=== PATIENT | female | born 1950 | race Caucasian/White ===

== ENCOUNTER 2019-06-20 13:50 | Emergency (ER) | payer MEDICARE, OTHER, SELFPAY ==
[2019-06-20 13:53] VITALS: BP 143/73; PULSE 108; RESP 18; TEMP 36.7; O2SAT 96; BMI 31.0
[2019-06-20 14:59] LABS: Basophils Absolute Auto 0 /uL (0-100); Eosinophils Absolute Auto 0 /uL (0-450); Monocytes Absolute Auto 500 /uL (0-900); Neutrophils Absolute Auto 5300 /uL (1500-7000)
[2019-06-20 15:00] VITALS: BP 145/66; PULSE 80; RESP 19; O2SAT 95
[2019-06-20 15:02] LABS: Add Manual Diff / Slide Review NO; Basophils Percent Auto 0.6 % (0-2); Eosinophils Percent Auto 0.4 % (2-4); Hematocrit 41.9 % (36-46); Hemoglobin 14.4 g/dL (12.0-16.0); Lymphocytes Absolute Auto 2200 /uL (1100-4500); Lymphocytes Percent Auto 27.2 % (25-40); Mean Corpuscular HGB Conc 34.3 % (30-36); Mean Corpuscular Hemoglobin 29.5 PG (26-34); Mean Corpuscular Volume 86.1 fL (80-100); Monocytes Percent Auto 5.7 % (3-14); Neutrophils Percent Auto 66.1 % (50-75); Platelet Count 240 X10^3/uL (150-400); Red Blood Cell Count 4.86 X10^6/uL (4.0-5.2); Red Cell Distribution Width 14.1 % (11.6-14.8)
[2019-06-20 15:09] LABS: Erythrocyte Sedimentation Rate 18 MM/HR (0-20)
[2019-06-20 15:10] LABS: Alanine Aminotransferase 20 IU/L (<35); Albumin 4.4 g/dL (3.5-5.0); Albumin Globulin Ratio 1.4 (1.0-2.8); Alkaline Phosphatase 95 U/L (38-126); Aspartate Aminotransferase 21 IU/L (14-36); BUN Creatinine Ratio 23.5 (6-22); Bilirubin Total 0.6 mg/dL (0.2-1.3); Blood Urea Nitrogen 19 mg/dL (7-17); C-Reactive Protein Quant 0.9 mg/dL (<1.0); Calcium 9.6 mg/dL (8.4-10.2); Carbon Dioxide 22 mmol/L (22-32); Chloride 105 mmol/L (98-107); Cholesterol 303 mg/dL (140-199); Estimated Glomerular Filt Rate > 60.0 mL/min (>60); Globulin 3.2 g/dL (1.7-4.1); Glucose 133 mg/dL (80-110); HDL Cholesterol 39 mg/dL (40-60); HEMOLYSIS < 15 (0-50); LDL Cholesterol Calculated 202 mg/dL (<100); Potassium 4.1 mmol/L (3.4-5.1); Sodium 137 mmol/L (137-145); Total Protein 7.6 g/dL (6.3-8.2); Triglycerides 312 mg/dL (35-150)
[2019-06-20 16:08] VITALS: BP 134/62; PULSE 67; RESP 18; O2SAT 98
--- NOTE | 2019-06-20 23:59 | ED.EYEPROB ---
HPI - Eye Problem <Dionte Elder [facility] - Last Filed: 06/21/19 00:21> General Chief complaint: Eye Problems Stated complaint: double vision Time Seen by Provider: 06/20/19 13:56 Source: patient Mode of arrival: Ambulatory Limitations: no limitations History of Present Illness HPI Narrative: This is a 69-year-old female, smoker, who presents to ED with chief complain of double vision for last 6 days and was referred to ED by Dr. Gamez ([employer]) for medical evaluation. Patient reports she was evaluated by Dr. Gamez today for double vision when she opens both eyes but with normal vision when she opens single eye at a time. Patient has been using sterile gauze over right eye to correct her vision at home. Patient denies other neurological symptoms such as headache, speech difficulty, facial droops, dysphagia, weakness to extremities. Patient has difficulty with balance but this is due to double vision but no difficulty with coordination. Patient denies recent illness, injury to eyes. Patient reports she has a follow-up appointment with Dr. Gamez and he contributes her double vision to ocular misalignment from dysfunctional eye muscle. Since patient has not seen by primary care physician for 5 years, Dr. Gamez requested patient to be evaluated for medical exam. Patient states she visit is previous primary care physician's office but she was told she will need reestablishment with the clinic and is not going to be seen for prolonged time. Related Data Allergies Allergy/AdvReac Type Severity Reaction Status Date / Time No Known Drug Allergies Allergy Verified 06/20/19 14:08 Review of Systems <Dionte PaulsonNicholas [facility] - Last Filed: 06/21/19 00:21> Review of Systems Narrative: General: Denies fever, chills, fatigue, malaise, sweats. HEENT: HPI Respiratory: Denies dyspnea, cough, wheezing, hemoptysis, sputum. Cardiovascular: Denies chest pain, palpitations, orthopnea, edema. Gastrointestinal: Denies nausea, vomiting, abdominal pain, diarrhea, constipation, melena. : Denies dysuria, frequency, incontinence, hematuria, urinary retention. Musculoskeletal: Denies weakness, joint pain or bony pain. Skin: Denies rash, skin lesions, or other. Neurologic: Denies weakness, headache, numbness, change in speech, confusion, seizures, incoordination. Psychiatric: No concerning psychosocial issues. 12-point review of systems is negative except for those stated above. Patient History <MIK Dalal - Last Filed: 06/21/19 00:21> Surgical History History of abdominoplasty (Acute) History of bilateral tubal ligation (Acute) Hx of tonsillectomy (Acute) Social History Smoking Status: Current every day smoker Smoking Status: Current every day smoker tobacco type: cigarettes Substance Use Type: does not use Exam <MIK Dalal - Last Filed: 06/21/19 00:21> Narrative Exam Narrative: GEN: Alert, oriented x 3, well appearing and nourished, and in no acute distress. Head: Normal cephalic, atraumatic. No scalp or temporal tenderness, cord-like temporal artery, palpable mass or rash. EYES: Pupils are equal, round, dilated. Extraocular muscles are intact bilaterally but not aligned with lateral movements. There is no subconjunctival hemorrhage, exudate and sclera non-icteric. ENT: Bilateral auditory canals and tympanic membranes clear. Hearing grossly intact. Nose without bleeding, purulent discharge or deviation. Facial sinuses nontender to palpate. Mucous membrane moist, no mucosal lesion. Throat without erythema, tonsillar hypertrophy or exudate. Uvula in midline, airway patent. Neck: Trachea in midline. No JVD, non-tender without lymphadenopathy. No masses or thyroid megaly. Supple, non-tender and no meningeal signs. CARDIAC: Normal tachy rate at 100's and regular rhythm without murmurs, gallops, or rubs. No chest wall tenderness. No peripheral edema, cyanosis or pallor. Capillary refill is less than 2 seconds. RESPIRATORY: Lungs are clear to auscultate bilaterally. No cough, wheezes, rales, or rhonchi. No stridor, respiratory distress, increase work of breathing, or accessary muscle used. ABD: Abdomen soft, nontender and non-distended. No guarding or rebound tenderness to palpate. Bowel sounds are normal in all 4 quadrants. There is no palpable masses or organomegaly. EXT: Full painless ROM of all extremities with no loss of sensation, strength, effusion or edema. SKIN: Warm, dry, normal color for patient. No erythema, lesions or rash over visible areas. BACK: Nontender without deformity or crepitance. No flank tenderness. NEUROLOGICAL: Alert and oriented to place, time and person. Sensation and motor function intact bilaterally. No facial droops, dysphasia. PSYCHIATRIC: Good judgement and reason, without hallucinations, abnormal affect or abnormal behaviors during the examination. Patient is not suicidal. Initial Vital Signs Initial Vital Signs: Vital Signs Temperature 98.0 F 06/20/19 13:53 Pulse Rate 108 H 06/20/19 13:53 Respiratory Rate 18 06/20/19 13:53 Blood Pressure 143/73 H 06/20/19 13:53 Pulse Oximetry 96 06/20/19 13:53 <Cal Sherwood DO - Last Filed: 06/21/19 07:01> Initial Vital Signs Initial Vital Signs: Vital Signs Temperature 98.0 F 06/20/19 13:53 Pulse Rate 108 H 06/20/19 13:53 Respiratory Rate 18 06/20/19 13:53 Blood Pressure 143/73 H 06/20/19 13:53 Pulse Oximetry 96 06/20/19 13:53 Scores <MIK Dalal - Last Filed: 06/21/19 00:21> GCS [place] coma scale eye opening: Spontaneous [place] coma scale verbal response: Orientated Hector coma scale motor response: Obey commands Hector coma scale total score: 15 NIH Stroke Scale Level of Conciousness: Alert, keenly responsive Ask month/age: Answers both questions correctly. Open/close eyes, close hand: Performs both tasks correctly Best gaze horizontal: Normal Visual garrett: No visual loss Facial palsy: Normal symetrical movement Left arm drift: No drift for full 10 sec Right arm drift: No drift for full 10 sec Left leg drift: No drift for full 10 sec Right leg drift: No drift for full 10 sec Limb ataxia: Absent Sensory on face/arms/legs: Normal, no sensory loss Best language: No aphasia, normal Dysarthria: Normal Extinction or inattention: No abnormality Total NIH Stroke scale score: 0 Course <MIK Dalal - Last Filed: 06/21/19 00:21> Vital Signs Vital signs: Vital Signs - 8 hr 06/20/19 16:08 Pulse Rate 67 Respiratory Rate 18 Blood Pressure [Left Arm] 134/62 Pulse Oximetry 98 <Cal Sherwood DO - Last Filed: 06/21/19 07:01> Vital Signs Vital signs: Vital Signs - 8 hr 06/20/19 16:08 Pulse Rate 67 Respiratory Rate 18 Blood Pressure [Left Arm] 134/62 Pulse Oximetry 98 MDM - Eye Problem <Dionte Paulson-CruzMIK morrow - Last Filed: 06/21/19 00:21> Differential Diagnosis Differential diagnosis: Likely other (CVA, binocular diplopia) Medical Records Attestation: I reviewed the patient's medical records. Lab Data Attestation: I reviewed the patient's lab results. Result diagrams: 06/20/19 14:45 06/20/19 14:45 Labs: Lab Results 06/20/19 06/20/19 Range/Units 14:45 14:45 WBC 8.0 (4.5-11.0) X10^3/uL RBC 4.86 (4.0-5.2) X10^6/uL Hgb 14.4 (12.0-16.0) g/dL Hct 41.9 (36-46) % MCV 86.1 (80-100) fL MCH 29.5 (26-34) PG MCHC 34.3 (30-36) % RDW 14.1 (11.6-14.8) % Plt Count 240 (150-400) X10^3/uL Neut % (Auto) 66.1 (50-75) % Lymph % (Auto) 27.2 (25-40) % Wake % (Auto) 5.7 (3-14) % Eos % (Auto) 0.4 L (2-4) % Baso % (Auto) 0.6 (0-2) % Neut # (Auto) 5300 (0453-9031) /uL Lymph # (Auto) 2200 (7102-7681) /uL Wake # (Auto) 500 (0-900) /uL Eos # (Auto) 0 (0-450) /uL Baso # (Auto) 0 (0-100) /uL ESR 18 (0-20) MM/HR Sodium 137 (137-145) mmol/L Potassium 4.1 (3.4-5.1) mmol/L Chloride 105 (98-107) mmol/L Carbon Dioxide 22 (22-32) mmol/L BUN 19 H (7-17) mg/dL Creatinine 0.81 (0.52-1.04) mg/dL Estimated GFR > 60.0 (>60) mL/min BUN/Creatinine Ratio 23.5 H (6-22) Glucose 133 H (80-110) mg/dL Calcium 9.6 (8.4-10.2) mg/dL Total Bilirubin 0.6 (0.2-1.3) mg/dL AST 21 (14-36) IU/L ALT 20 (<35) IU/L Alkaline Phosphatase 95 (38-126) U/L C-Reactive Protein 0.9 (<1.0) mg/dL Total Protein 7.6 (6.3-8.2) g/dL Albumin 4.4 (3.5-5.0) g/dL Globulin 3.2 (1.7-4.1) g/dL Albumin/Globulin Ratio 1.4 (1.0-2.8) Triglycerides 312 H (35-150) mg/dL Cholesterol 303 H (140-199) mg/dL LDL Cholesterol, Calc 202 H (<100) mg/dL HDL Cholesterol 39 L (40-60) mg/dL ECG Data Attestation: I personally reviewed and interpreted this ECG as follows: Prior ECG tracings: not available for review Interpretation: Normal sinus rhythm rate at 71. Normal axis. P are interval 166, QRS duration 80, QT/QTC 366/397. No ST elevation or depression. MDM Narrative Medical decision making narrative: This is a 69-year-old female who presents to ED for medical exam since she does not have primary care physician and lab test after she was seen by for binocular diplopia for last 6 days. Patient has not been seen by primary care physician for last 5 years and he was suggested that patient should have medical exam done to ensure that binocular diplopia is not due to other medical conditions. Patient has no other focal neurological symptoms. Patient reports she see double vision when she opens both eyes but it gets clear when she opens one eye at a time. EKG test was normal sinus rhythm rate at 71. Patient had stable H&H without leukocytosis. Chemistry test was unremarkable except mild signs of dehydration. Patient had elevated serum glucose level as 133. Liver function tests were unremarkable. Kidney function test was normal. Patient requested lipid panel even after we discussed this is not routinely done in emergency room and should be arranged by new primary care physician but patient requested this to be done today. Patient had moderately increased triglycerides of 312, cholesterol of 303, LDL of 202, decreased HDL as 39. Patient states she used to take low dose of statin and is hoping to lose at least 20-30 lb which will help with hyperlipidemia and elevated glucose. Also Dr. Gamez requested CRP an ESR test to be done which were both normal to be considered for giant temporal arteritis or inflammation/infection etiology. 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 Discussed findings with patient patient provided with [facility] contact phone numbers and local clinic to set up a a PCP. Patient advised increased physical activity heart healthy diet to work on her weight and hyperlipidemia/hyperglycemia. Also, patient informed to consider statin therapy which should be followed up by PCP. Patient informed she may need further blood test including but not limited to thyroid function test, hemoglobin A1c which could cause diplopia as well. Patient verbalized understanding and agreement with the treatment plan. <Cal Sherwood, DO - Last Filed: 06/21/19 07:01> Lab Data Labs: Lab Results 06/20/19 06/20/19 Range/Units 14:45 14:45 WBC 8.0 (4.5-11.0) X10^3/uL RBC 4.86 (4.0-5.2) X10^6/uL Hgb 14.4 (12.0-16.0) g/dL Hct 41.9 (36-46) % MCV 86.1 (80-100) fL MCH 29.5 (26-34) PG MCHC 34.3 (30-36) % RDW 14.1 (11.6-14.8) % Plt Count 240 (150-400) X10^3/uL Neut % (Auto) 66.1 (50-75) % Lymph % (Auto) 27.2 (25-40) % Wake % (Auto) 5.7 (3-14) % Eos % (Auto) 0.4 L (2-4) % Baso % (Auto) 0.6 (0-2) % Neut # (Auto) 5300 (1494-9332) /uL Lymph # (Auto) 2200 (0111-3353) /uL Wake # (Auto) 500 (0-900) /uL Eos # (Auto) 0 (0-450) /uL Baso # (Auto) 0 (0-100) /uL ESR 18 (0-20) MM/HR Sodium 137 (137-145) mmol/L Potassium 4.1 (3.4-5.1) mmol/L Chloride 105 (98-107) mmol/L Carbon Dioxide 22 (22-32) mmol/L BUN 19 H (7-17) mg/dL Creatinine 0.81 (0.52-1.04) mg/dL Estimated GFR > 60.0 (>60) mL/min BUN/Creatinine Ratio 23.5 H (6-22) Glucose 133 H (80-110) mg/dL Calcium 9.6 (8.4-10.2) mg/dL Total Bilirubin 0.6 (0.2-1.3) mg/dL AST 21 (14-36) IU/L ALT 20 (<35) IU/L Alkaline Phosphatase 95 (38-126) U/L C-Reactive Protein 0.9 (<1.0) mg/dL Total Protein 7.6 (6.3-8.2) g/dL Albumin 4.4 (3.5-5.0) g/dL Globulin 3.2 (1.7-4.1) g/dL Albumin/Globulin Ratio 1.4 (1.0-2.8) Triglycerides 312 H (35-150) mg/dL Cholesterol 303 H (140-199) mg/dL LDL Cholesterol, Calc 202 H (<100) mg/dL HDL Cholesterol 39 L (40-60) mg/dL Discharge Plan Departure Patient Disposition: Home Clinical Impression: Binocular vision disorder with diplopia, Blood glucose elevated Hyperlipidemia Qualifiers: Hyperlipidemia type: unspecified Qualified Code(s): E78.5 - Hyperlipidemia, unspecified Discharge Date/Time: 06/20/19 16:15 Instructions: Lifestyle Changes as Effective as Drugs in Preventing Progression to Diabet, DI for High Cholesterol-Adult, DI for Double Vision Activity Restrictions/Additional Instructions: You have been diagnosed with [binocular diplopia. Please use sterile gauze to cover your eye as needed to help with double vision. Blood count looks good. EKG looks normal sinus rhythm. Lipid panel was moderately elevated and serum glucose was mildly elevated. ESR and CRP was within normal limits. You can share this information with Dr. Gamez. ]. What to do: *Take your medications as directed. You can change your diet and increased physical activity to help with elevated lipids and glucose. Losing 10 lb could decrease her blood pressure as well. *Follow up with your primary care provider in 2-3 days, call for an appointment. Let them know you were seen in the ED and that we asked you to be seen in follow up. Please follow-up with Dr. Gamez as scheduled. Please contact [facility] or Dr. Shankar's office to set up an PCP and to follow up with hyperlipidemia, elevated blood glucose, possible thyroid hormone testing. *Return to ED if you have any new, worsening, or concerning symptoms, such as [chest pain, breathing difficulty, fever, unable to tolerate fluids, difficulty speech, weakness to 1 side of body, severe headache, difficulty swallowing or any acute concerns]. Referrals: [facility] [Outside] Brennen Shankar MD [Physician] - <Cal Sherwood DO - Last Filed: 06/21/19 07:01> Cosign ED Attending Cosignature Attestation: Dr Sherwood Co-Sign Statement: I was available for consultation during this patient's emergency department visit. This chart is signed by myself for administrative purposes only. I did not have direct contact with this patient during this visit. They were seen independently by the APC.
== END 2019-06-20 16:15 | disposition home or self-care (01) ==
PROVIDERS: Emergency Provider Nurse Practitioner Family
DX: H53.2 Diplopia (principal); R73.9 Hyperglycemia, unspecified; E78.5 Hyperlipidemia, unspecified; R07.9 Chest pain, unspecified
CPT/HCPCS: 36415; 80053; 80061; 85025; 85651; 86140; 93005; 99284

== ENCOUNTER → 2019-06-21 12:27 | Outpatient (CLI) | payer MEDICARE, OTHER, SELFPAY ==
[2019-06-21 12:45] LABS: Hemoglobin A1C% w Est Avg Glu 6.8 % (4.0-6.0)
== END ==
PROVIDERS: Visit Provider Nurse Practitioner Family
DX: H53.2 Diplopia (principal)
CPT/HCPCS: 83036; 84443

== ENCOUNTER → 2019-11-24 08:43 | Outpatient (CLI) | payer MEDICARE, OTHER, SELFPAY ==
[2019-11-24 09:36] LABS: Hemoglobin A1C% w Est Avg Glu 6.4 % (4.0-6.0)
[2019-11-24 09:42] LABS: Cholesterol 136 mg/dL (140-199); HDL Cholesterol 53 mg/dL (40-60); LDL Cholesterol Calculated 59 mg/dL (<100); Triglycerides 119 mg/dL (35-150)
[2019-11-24 10:15] LABS: Creatinine Urine Random 20.8 mg/dL
[2019-11-24 10:19] LABS: Microalbumi Creatinin Ratio Ur 28.8 ug/mg CR (<30); Microalbumin Urine Random < 0.6 mg/dL (0-1.6)
== END ==
PROVIDERS: PCP Nurse Practitioner Family; Referring Provider Nurse Practitioner Family; Visit Provider Nurse Practitioner Family
DX: E11.9 Type 2 diabetes mellitus without complications (principal); E78.5 Hyperlipidemia, unspecified
CPT/HCPCS: 36415; 80061; 82043; 82570; 83036

== ENCOUNTER → 2020-02-27 10:03 | Outpatient (CLI) | payer MEDICARE, OTHER, SELFPAY ==
--- NOTE | 2020-02-27 11:24 | DIET.PN ---
Diabetes Intake: Initial Assessment Assess: Ms. Martinez is a 69 YOF referred for type 2 diabetes. Pt has a hx of IBS. Avoids sulfites, garlic, onion, MSG. Family hx of hyperlipidemia and diabetes. Admits to poor eating habits, particularly stress eating in the last few months. She does not cook. Regular consumption of frozen meals and was eating omar in the box or [employer] several times/week. Started metformin and statin in June after most recent labs. Has difficulty exercising/walking due to SI tear. Labs: Per pt report: 6.8 Meds: metformin 500mg qd atorvastatin: 20mg Diet: per 24 hr recall: B: wheat ukrainian muffin w/ cr chz; special K cereal w/ almond milk; OJ L: varies D: lean cuisine bowls, crockpot meals Sn: apples, mandarin oranges, rice cakes w/ peanut butter, activia, diabetic friendly ice cream Wt: 175lb Ht: 65in BMI: 29 DX: Altered nutrition related laboratory values related to impaired glucose metabolism, lack of previous exposure to nutrition information as evidenced by pt report, diagnosis of diabetes, previous diet high in refined carbohydrates. Intervention: 1. Completed intake assessment. Discussed barriers to care. 2. Discussed pathophysiology of diabetes. Reviewed A1c and its correlation to blood glucose numbers. Discussed recommended BG ranges. 3. Discussed importance of self-monitoring, how often, and when to check. 4. Reviewed hyper/hypoglycemia and treatment. 5. Reviewed safe disposal of equipment (strip/lancets/insulin needles). 6. Created SMART goals for pt self-care and success. 7. Discussed program curriculum outline and class needs based on individual goals. SMART Goals: 1. Pt would like to lose 25lbs in the next 6 mo (overall goal of 50lb) through portion control, carb counting, reading food labels, and walking daily. Monitor/Evaluate: Pt will attend full DSME program. Basic Nutrition class scheduled for Mar 08.
== END ==
PROVIDERS: PCP Nurse Practitioner Family; Referring Provider Nurse Practitioner Family; Visit Provider Nurse Practitioner Family
DX: E11.9 Type 2 diabetes mellitus without complications (principal); S33.6XXD Sprain of sacroiliac joint, subsequent encounter; Z79.84 Long term (current) use of oral hypoglycemic drugs; Z83.438 Family history of other disorder of lipoprotein metabolism and other lipidemia
CPT/HCPCS: G0108

== ENCOUNTER → 2020-03-03 08:26 | Outpatient (CLI) | payer MEDICARE, OTHER, SELFPAY ==
[2020-03-03 09:50] LABS: Hemoglobin A1C% w Est Avg Glu 6.7 % (4.0-6.0)
[2020-03-03 10:08] LABS: Blood Urea Nitrogen 15 mg/dL (7-17); Calcium 9.5 mg/dL (8.4-10.2); Carbon Dioxide 29 mmol/L (22-32); Chloride 100 mmol/L (98-107); Estimated Glomerular Filt Rate > 60.0 mL/min (>60); Glucose 120 mg/dL (80-110); HEMOLYSIS < 15 (0-50); Potassium 4.4 mmol/L (3.4-5.1); Sodium 134 mmol/L (137-145)
== END ==
PROVIDERS: PCP Nurse Practitioner Family; Referring Provider Nurse Practitioner Family; Visit Provider Nurse Practitioner Family
DX: E11.9 Type 2 diabetes mellitus without complications (principal)
CPT/HCPCS: 36415; 80048; 83036

== ENCOUNTER → 2020-03-06 13:50 | Outpatient (CLI) | payer MEDICARE, OTHER, SELFPAY ==
--- NOTE | 2020-03-06 15:48 | DIET.PN ---
Diabetes: Healthy Eating 1 Intervention: ? Discussed pathophysiology of diabetes and impact of nutrition/diet on blood sugar control.? Discussed fed versus non-fed state.?? ? Reviewed importance of Balance, Variety, and Moderation. ? Discussed the effect of carbohydrates/protein/fat on blood sugar control.? ? Stressed importance of consistent carbohydrate intake at each meal and provided instructions for recommended servings/portions of carbohydrates/protein per meal. Provided educational material. ? Reviewed carbohydrate counting and measuring carbohydrate content via serving sizes and reading nutrition labels.? Provided handouts.?? ? Discussed the difference between simple versus complex carbohydrates and the effect of fiber on blood sugar control.? Discussed various methods to increase fiber content in diet. ? Discussed the plate method for creating more carbohydrate conscious balanced meals. ? Stressed importance of meal timing and not going >4-5 hours between meals. Encouraged adding protein to evening snack to support glucose control overnight. ? Discussed importance of making dietary habits part of lifestyle change.
== END ==
PROVIDERS: PCP Nurse Practitioner Family; Referring Provider Nurse Practitioner Family; Visit Provider Nurse Practitioner Family
DX: E11.9 Type 2 diabetes mellitus without complications (principal); Z71.3 Dietary counseling and surveillance
CPT/HCPCS: G0109

== ENCOUNTER → 2020-03-11 13:53 | Outpatient (CLI) | payer MEDICARE, OTHER, SELFPAY ==
--- NOTE | 2020-03-11 15:43 | DIET.PN ---
Diabetes: Healthy Eating 2 Intervention: Fats effects on glucose, weight, heart disease, cholesterol Sat Vs Unsat Protein- animal and plant based options Low, med, high fat meats Sugar substitutes Sodium Health claims Grocery shopping guidelines Eating away from home Alcohol Sick day guidelines Ketone Testing
== END ==
PROVIDERS: PCP Nurse Practitioner Family; Referring Provider Nurse Practitioner Family; Visit Provider Nurse Practitioner Family
DX: E11.9 Type 2 diabetes mellitus without complications (principal); Z71.3 Dietary counseling and surveillance
CPT/HCPCS: G0109

== ENCOUNTER → 2020-04-22 10:02 | Outpatient (CLI) | payer MEDICARE, OTHER, SELFPAY ==
--- NOTE | 2020-04-22 11:42 | DIET.PN ---
Diabetes Physiology: Intervention 1. Diabetes physiology 2. Detecting and treatment of acute and chronic complications 3. Diagnosis of and difference in types of diabetes 4. Self-monitoring and pattern management a. Demonstrate glucometer and control testing b. Explain BG results and action to take when out of range. 5. Foot , eye, dental care 6. Medications a. Oral medication classification b. Injectable c. Insulin i. Injection protocol ii Other delivery methods
== END ==
PROVIDERS: PCP Nurse Practitioner Family; Referring Provider Nurse Practitioner Family; Visit Provider Nurse Practitioner Family
DX: E11.9 Type 2 diabetes mellitus without complications (principal); Z71.3 Dietary counseling and surveillance
CPT/HCPCS: G0109

== ENCOUNTER → 2020-04-29 09:59 | Outpatient (CLI) | payer MEDICARE, OTHER, SELFPAY ==
--- NOTE | 2020-04-29 11:13 | DIET.PN ---
Diabetes Exercise/Lifestyle change: 1. Importance of exercise 2. FITT (frequency, intensity, time, type) 3. Strength training tips and guidelines 4. Glucose monitoring/ranges before and after a. Carbohydrate needs based on glucose ranges and duration/intensity of exercise b. Rule of 15 5. Proper foot attire 6. Developing strategies for behavior change 7. SMART Goal Setting 8. Home exercise routine demonstration (as a class)
== END ==
PROVIDERS: PCP Nurse Practitioner Family; Referring Provider Nurse Practitioner Family; Visit Provider Nurse Practitioner Family
DX: E11.9 Type 2 diabetes mellitus without complications (principal); Z71.3 Dietary counseling and surveillance
CPT/HCPCS: G0109

== ENCOUNTER → 2020-05-22 13:24 | Outpatient (CLI) | payer MEDICARE, OTHER, SELFPAY ==
--- NOTE | 2020-05-22 14:34 | DIET.PN ---
DIABETES Nutrition Initial Assessment:? ASSESS:?? Ms. Martinez is a 70 yof??referred for type 2 diabetes seen as part of DSME program. She has not been monitoring her bg as she has not received all of her glucometer supplies. She recently purchased a pedometer to begin tracking her steps/activity. She admits she has not been as compliant with her diabetes management in the last few weeks. She is feeling more motivated now to exercise and start eating better. She has found exercise difficult due to DI tear but agrees to start walking up and down her driveway until she feel comfortable leaving her home. ??? LABS: Per pt report:? A1c- 6.7 (not checking bs) ? MEDS:?? metformin: 500mg qd atorvastatin: 20mg ? DIET: Per 24-hour recall:? Eating Out: rarely Changes in Appetite: na Nutrition Supplements: ? Weight: 175lb Height: 65in BMI: ? 29 ? Exercise:? not exercising NUTRITION DX 1. Altered Nutrition related labs related to impaired glucose metabolism, lack of previous exposure to accurate nutrition information as evidenced by pt report, dx of diabetes, previous diet high in refined carbohydrates.? INTERVENTION(s): 1. Reviewed pathophysiology of diabetes and impact of nutrition/diet on blood sugar control.? Discussed fed versus non-fed state.?? 2. Discussed the effect of carbohydrates/protein/fat on blood sugar control.? Stressed importance of consistent carbohydrate intake at each meal and provided instructions for recommended servings/portions of carbohydrates/protein per meal. Provided pt with educational material. 3. Reviewed carbohydrate counting and measuring carbohydrate content via serving sizes and reading nutrition labels.? Provided handouts.?? 4. Discussed the difference between simple versus complex carbohydrates and the effect of fiber on blood sugar control.? Discussed various methods to increase fiber content in diet. 5. Stressed importance of meal timing and not going >4-5 hours between meals. Encouraged adding protein to evening snack to support glucose control overnight. Patient agreeable. 6. Discussed healthy weight loss goals of 1-2lbs per week through diet and exercise.? Pt agreeable to walking at least 30 minutes daily working up to 10,000 steps/day. 7. Recommend monitoring fasting and alternating 2 hr PP mealtime glucose. Spent 15 min demonstrating glucometer, control testing, and safe disposal. MONITOR/EVALUATE: Anticipate good compliance.? Nutrition follow-up scheduled for 1 month.
== END ==
PROVIDERS: PCP Nurse Practitioner Family; Referring Provider Nurse Practitioner Family; Visit Provider Nurse Practitioner Family
DX: E11.9 Type 2 diabetes mellitus without complications (principal); Z79.84 Long term (current) use of oral hypoglycemic drugs; Z71.3 Dietary counseling and surveillance; Z68.29 Body mass index [BMI] 29.0-29.9, adult
CPT/HCPCS: G0109

== ENCOUNTER → 2020-06-05 08:27 | Outpatient (CLI) | payer MEDICARE, OTHER, SELFPAY ==
[2020-06-05] MEDS: COVID-19 VACC, Ad26(JANSSEN)/PF 0.5 ML IM (08:34)
== END ==
PROVIDERS: PCP Nurse Practitioner Family; Visit Provider Internal Medicine
DX: Z23 Encounter for immunization (principal)
CPT/HCPCS: 0031A; 91303

== ENCOUNTER → 2022-06-07 09:05 | Outpatient (CLI) | payer MEDICARE, OTHER, SELFPAY ==
[2022-06-07 10:04] LABS: Add Manual Diff / Slide Review NO; Basophils Absolute Auto 0 /uL (0-100); Basophils Percent Auto 0.4 % (0-2); Eosinophils Absolute Auto 100 /uL (0-450); Eosinophils Percent Auto 0.7 % (2-4); Hematocrit 42.7 % (36-46); Hemoglobin 14.9 g/dL (12.0-16.0); Lymphocytes Absolute Auto 2400 /uL (1100-4500); Lymphocytes Percent Auto 27.7 % (25-40); Mean Corpuscular Volume 85.9 fL (80-100); Monocytes Absolute Auto 500 /uL (0-900); Monocytes Percent Auto 5.8 % (3-14); Neutrophils Absolute Auto 5600 /uL (1500-7000); Neutrophils Percent Auto 65.4 % (50-75); Platelet Count 241 X10^3/uL (150-400); Red Blood Cell Count 4.97 X10^6/uL (4.0-5.2); White Blood Cell Count 8.6 X10^3/uL (4.5-11.0)
[2022-06-07 10:31] LABS: Alanine Aminotransferase 18 IU/L (<35); Albumin 4.4 g/dL (3.5-5.0); Albumin Globulin Ratio 1.8 (1.0-2.8); Alkaline Phosphatase 78 U/L (38-126); Aspartate Aminotransferase 19 IU/L (14-36); BUN Creatinine Ratio 22.5 (6-22); Bilirubin Total 0.5 mg/dL (0.2-1.3); Blood Urea Nitrogen 18 mg/dL (7-17); Calcium 9.1 mg/dL (8.4-10.2); Carbon Dioxide 23 mmol/L (22-32); Chloride 102 mmol/L (98-107); Cholesterol 124 mg/dL (140-199); Estimated Glomerular Filt Rate > 60 mL/min (>60); Globulin 2.5 g/dL (1.7-4.1); Glucose 134 mg/dL (80-110); HDL Cholesterol 50 mg/dL (40-60); HEMOLYSIS < 15 (0-50); LDL Cholesterol Calculated 37 mg/dL (<100); Potassium 4.3 mmol/L (3.4-5.1); Sodium 136 mmol/L (137-145); Total Protein 6.9 g/dL (6.3-8.2); Triglycerides 186 mg/dL (35-150)
[2022-06-07 10:42] LABS: Creatinine Urine Random 122.7 mg/dL
[2022-06-07 10:45] LABS: Microalbumi Creatinin Ratio Ur 7.3 ug/mg CR (<30); Microalbumin Urine Random 0.9 mg/dL (0-1.6)
[2022-06-07 11:04] LABS: TSH w/ Reflex to FT4 2.55 uIU/mL (0.47-4.68)
== END ==
PROVIDERS: Pediatrics; PCP Family Medicine; Referring Provider Family Medicine; Visit Provider Family Medicine
DX: E11.9 Type 2 diabetes mellitus without complications (principal); E78.2 Mixed hyperlipidemia
CPT/HCPCS: 36415; 80053; 80061; 82043; 82570; 83036; 84443; 85025

== ENCOUNTER → 2023-07-13 08:33 | Outpatient (CLI) | payer MEDICARE, OTHER, SELFPAY ==
[2023-07-13 09:10] LABS: Add Manual Diff / Slide Review NO; Basophils Absolute Auto 0 /uL (0-100); Basophils Percent Auto 0.3 % (0-2); Eosinophils Absolute Auto 100 /uL (0-450); Eosinophils Percent Auto 0.8 % (2-4); Hematocrit 42.5 % (36-46); Hemoglobin 14.6 g/dL (12.0-16.0); Lymphocytes Absolute Auto 2100 /uL (1100-4500); Lymphocytes Percent Auto 28.7 % (25-40); Mean Corpuscular HGB Conc 34.3 % (30-36); Mean Corpuscular Hemoglobin 30.5 PG (26-34); Mean Corpuscular Volume 88.9 fL (80-100); Monocytes Absolute Auto 400 /uL (0-900); Monocytes Percent Auto 5.8 % (3-14); Neutrophils Absolute Auto 4700 /uL (1500-7000); Neutrophils Percent Auto 64.4 % (50-75); Platelet Count 252 X10^3/uL (150-400); Red Blood Cell Count 4.78 X10^6/uL (4.0-5.2); Red Cell Distribution Width 13.9 % (11.6-14.8); White Blood Cell Count 7.3 X10^3/uL (4.5-11.0)
[2023-07-13 09:28] LABS: Alanine Aminotransferase 14 IU/L (<35); Albumin 4.5 g/dL (3.5-5.0); Alkaline Phosphatase 74 U/L (38-126); Aspartate Aminotransferase 22 IU/L (14-36); Bilirubin Total 0.7 mg/dL (0.2-1.3); Blood Urea Nitrogen 18 mg/dL (7-17); Calcium 9.1 mg/dL (8.4-10.2); Carbon Dioxide 26 mmol/L (22-32); Chloride 105 mmol/L (98-107); Cholesterol 148 mg/dL (140-199); Estimated Glomerular Filt Rate > 60 mL/min (>60); Globulin 2.3 g/dL (1.7-4.1); Glucose 138 mg/dL (80-110); HDL Cholesterol 52 mg/dL (40-60); HEMOLYSIS 56 (0-50); LDL Cholesterol Calculated 51 mg/dL (<100); Potassium 4.8 mmol/L (3.4-5.1); Sodium 137 mmol/L (137-145); Total Protein 6.8 g/dL (6.3-8.2); Triglycerides 226 mg/dL (35-150)
[2023-07-13 09:29] LABS: Hemoglobin A1C% w Est Avg Glu 6.9 % (4.0-6.0)
== END ==
PROVIDERS: PCP Family Medicine; Referring Provider Family Medicine; Visit Provider Family Medicine
DX: E11.8 Type 2 diabetes mellitus with unspecified complications (principal); E78.2 Mixed hyperlipidemia
CPT/HCPCS: 36415; 80053; 80061; 83036; 85025

== ENCOUNTER → 2023-08-10 11:42 | Outpatient (CLI) | payer MEDICARE, OTHER, SELFPAY ==
--- NOTE | 2023-08-10 11:45 | DI.RAD.S_ITS ---
PROCEDURE: XR DEXA AXIAL SKELETON INDICATIONS: screening COMPARISON: DEXA, 04/07/2012. FINDINGS: Lumbar Spine: Bone mineral density 1.1-2 g/cm2, T score 0 point, normal. Left Hip: Bone mineral density 0.865 g/cm2, T score -0.6, normal. Left Femoral Neck: Bone mineral density 0.635 g/cm2, T score -1.9, osteopenia. Right Hip: Bone mineral density 0.861 g/cm2, T score -0.7, normal. Right Femoral Neck: Bone mineral density 0.633 g/cm2, T score -1.9, osteopenia. Fracture Risk Calculation (when applicable): 10-year fracture risk of a major osteoporotic fracture 28% and of a hip fracture 10%. (T score greater or equal to -1.0 to: NORMAL) (T score from -1.1 to -2.4: OSTEOPENIA) (T score less than or equal to -2.5: OSTEOPOROSIS) IMPRESSION: 1. Based on WHO criteria, the patient has osteopenia and increased fracture risk. 2. Because of dissimilar scan types and analysis masses, cannot determine statistical significance in bone mineral density changes between the current scan and the last exam. Follow-up guidelines as follows: Osteoporosis: Consider a repeat DEXA and Vertebral Fracture Assessment (VFA) exam in 2 years or sooner if medically necessary, to reassess this patient's status. Osteopenia: Consider a repeat DEXA in 2-3 years to reassess this patient's status, or if there is a new clinical indication. Normal: Consider a repeat DEXA in 5 years or sooner, or if there is a new clinical indication. Dictated by: Ananya Hoyos M.D. on 08/10/2023 at 12:32 Approved by: Ananya Hoyos M.D. on 08/10/2023 at 12:33
== END ==
PROVIDERS: PCP Family Medicine; Referring Provider Family Medicine; Visit Provider Family Medicine
DX: M85.89 Other specified disorders of bone density and structure, multiple sites (principal)
CPT/HCPCS: 77080

== ENCOUNTER → 2024-08-21 09:32 | Outpatient (CLI) | payer MEDICARE, OTHER, SELFPAY ==
[2024-08-21 10:20] LABS: Hemoglobin A1C% w Est Avg Glu 6.2 % (4.0-6.0)
[2024-08-21 10:24] LABS: BUN Creatinine Ratio 19.5 (6-22); Blood Urea Nitrogen 15 mg/dL (7-17); Calcium 9.1 mg/dL (8.4-10.2); Carbon Dioxide 24 mmol/L (22-32); Chloride 103 mmol/L (98-107); Estimated Glomerular Filt Rate > 60 mL/min (>60); Glucose 138 mg/dL (70-99); HEMOLYSIS < 15 (0-50); Potassium 4.7 mmol/L (3.4-5.1); Sodium 136 mmol/L (137-145)
[2024-08-21 16:26] LABS: Hep C Virus Ab w/Reflex Quant NEGATIVE s/c (NEGATIVE)
== END ==
PROVIDERS: PCP Family Medicine; Referring Provider Family Medicine; Visit Provider Family Medicine
DX: E11.8 Type 2 diabetes mellitus with unspecified complications (principal); I10 Essential (primary) hypertension; Z11.59 Encounter for screening for other viral diseases
CPT/HCPCS: 36415; 80048; 83036; 86803